=== PATIENT | female | born 1975 | race Caucasian/White ===

== ENCOUNTER 2019-01-17 13:27 | Emergency (ER) | payer OTHER, SELFPAY ==
[~2019-01-17] VITALS: Ht 172.7 cm; Wt 61.4 kg
[2019-01-17 14:13] VITALS: BP 152/65
[2019-01-17] MEDS ORDERED: ZOFRAN ODT SL STA (14:18)
[2019-01-17] MEDS ORDERED: STADOL IM STA (14:18)
--- NOTE | 2019-01-17 14:30 | ER.PDOC ---
General Chief Complaint: Headache Stated Complaint: BLURRED VISION AND HEADACHE Time seen by MD: 14:22 Source: patient Exam Limitations: no limitations History of Present Illness Timing/Duration: 1 hour Severity/Quality: moderate Prior Headaches/Recent Trauma: occasional headaches Associated Symptoms: nausea/vomiting, scotoma, vision changes Modifying Factors: improves with medication, improves with rest Prior symptoms/Treatment: Similar symptoms previous Past Medical History Medical History: no pertinent history Surgical History: tonsillectomy, other Social History Smoking: non-smoker Alcohol Use: none Drug Use: none Reviewed Nursing Reviewed: Vital Signs, Abn. Noted Review of Systems All Other Systems: Reviewed and Negative Physical Exam General Appearance: No Apparent Distress, WD/WN Head/Eyes: eyes nml inspection, no facial swelling, no nystagmus, PERRL ENT: nml ENT inspection, pharynx nml Neck: nml inspection, Supple Cardiovascular: Normal Peripheral Pulses, Regular Rate, Rhythm, No Edema, No Gallop, No JVD, No Murmur Respiratory: chest non-tender, lungs clear, normal breath sounds, no respiratory distress, no accessory muscle use Gastrointestinal: Normal Bowel Sounds, No Organomegaly, No Pulsatile Mass, Non Tender, Soft Back: Normal Inspection, No CVA Tenderness, No Vertebral Tenderness Extremities: Normal Range of Motion, Non-Tender, Normal Inspection, No Pedal Edema, No Calf Tenderness, Normal Capillary Refill Psychiatric: Alert, Oriented x 3 Cranial Nerves: Normal Hearing, Normal Speech, PERRL Coordination/Gait: Normal Finger to Nose, Normal Gait Motor/Sensory: No Motor Deficit, No Sensory Deficit, No Pronator Drift, Negative Babinski's Sign Skin: Warm/Dry, Normal Color Lymphatic: No Adenopathy Results/Orders Results/Orders Orders - MILA BOBO MD Butorphanol Tartrate (Stadol) (01/17/19 14:18) Ondansetron (Zofran Odt) (01/17/19 14:18) Vital Signs Date Time Temp Pulse Resp B/P (MAP) Pulse Ox O2 Delivery O2 Flow Rate FiO2 01/17/19 14:13 98.3 99 16 152/65 (94) 99 01/17/19 14:08 98.3 99 16 99 Room Air 01/17/19 14:08 98.3 99 16 Course Sepsis Screening Results: Posi: POSITIVE SEPSIS RISK Vitals & review Data Vital Sign - Last 24 Hours 8/30/19 8/30/19 8/30/19 14:08 14:08 14:13 Temp 98.3 98.3 98.3 Pulse 99 99 99 Resp 16 16 16 B/P (MAP) 152/65 (94) Pulse Ox 99 99 O2 Delivery Room Air Sepsis Infection Criteria Pres: None O2 Sat by Pulse Oximetry: 99 Departure Time of Disposition: 15:00 Disposition: 01 HOME, SELF-CARE Impression: Primary Impression: Migraine Condition: Improved Referrals: PCP,UNKNOWN (PCP) PRIMARY CARE PROVIDER Duration or Time Spent with Pa: Javi M MILA BOBO MD Jan 17, 2019 14:30
[2019-01-17] MEDS ORDERED: ZOFRAN ODT ONE ×2 (15:35→17:15)
--- NOTE | 2019-01-17 16:47 | ER.PDOC ---
General Chief Complaint: Headache Stated Complaint: BLURRED VISION AND HEADACHE Time seen by MD: 16:44 Source: patient Exam Limitations: no limitations History of Present Illness Timing/Duration: 1 hour Severity/Quality: moderate Prior Headaches/Recent Trauma: occasional headaches Associated Symptoms: nausea/vomiting, sensitivity to light, scotoma, vision changes Modifying Factors: improves with medication, improves with rest Prior symptoms/Treatment: Similar symptoms previous Past Medical History Medical History: no pertinent history Surgical History: tonsillectomy, other Social History Smoking: non-smoker Alcohol Use: none Drug Use: none Reviewed Nursing Reviewed: Vital Signs, Abn. Noted Review of Systems All Other Systems: Reviewed and Negative Physical Exam General Appearance: No Apparent Distress, WD/WN Head/Eyes: eyes nml inspection, no facial swelling, no nystagmus, PERRL ENT: nml ENT inspection, pharynx nml Neck: nml inspection, Supple Cardiovascular: Normal Peripheral Pulses, Regular Rate, Rhythm, No Edema, No Gallop, No JVD, No Murmur Gastrointestinal: Normal Bowel Sounds, No Organomegaly, No Pulsatile Mass, Non Tender, Soft Back: Normal Inspection, No CVA Tenderness, No Vertebral Tenderness Extremities: Normal Range of Motion, Non-Tender, Normal Inspection, No Pedal Edema, No Calf Tenderness, Normal Capillary Refill Psychiatric: Alert, Oriented x 3 Cranial Nerves: Normal Hearing, Normal Speech, PERRL Coordination/Gait: Normal Finger to Nose, Normal Gait Motor/Sensory: No Motor Deficit, No Sensory Deficit, No Pronator Drift, Negative Babinski's Sign Skin: Warm/Dry, Normal Color Lymphatic: No Adenopathy Results/Orders Results/Orders Orders - MILA BOBO MD Butorphanol Tartrate (Stadol) (01/17/19 14:18) Ondansetron (Zofran Odt) (01/17/19 14:18) Vital Signs Date Time Temp Pulse Resp B/P (MAP) Pulse Ox O2 Delivery O2 Flow Rate FiO2 01/17/19 14:13 98.3 99 16 152/65 (94) 99 01/17/19 14:08 98.3 99 16 99 Room Air 01/17/19 14:08 98.3 99 16 Course Sepsis Screening Results: Posi: POSITIVE SEPSIS RISK Duration or Total Time Spent w: 20 M Vitals & review Data Vital Sign - Last 24 Hours 01/17/19 01/17/19 01/17/19 14:08 14:08 14:13 Temp 98.3 98.3 98.3 Pulse 99 99 99 Resp 16 16 16 B/P (MAP) 152/65 (94) Pulse Ox 99 99 O2 Delivery Room Air Sepsis Infection Criteria Pres: None O2 Sat by Pulse Oximetry: 99 Departure Time of Disposition: 17:00 Disposition: 01 HOME, SELF-CARE Impression: Primary Impression: Migraine Condition: Improved Referrals: PCP,UNKNOWN (PCP) PRIMARY CARE PROVIDER Duration or Time Spent with Pa: 20 M MILA BOBO MD Jan 17, 2019 16:47
== END 2019-01-17 17:21 | disposition home or self-care (01) ==
LOC: ER 13:27
DX: G43.909 Migraine, unspecified, not intractable, without status migrainosus (principal); Z90.89 Acquired absence of other organs
CPT/HCPCS: 96372; 99283; Q0162